=== PATIENT | female | born 1985 | race Caucasian/White ===

== ENCOUNTER 2021-02-07 19:00 | Outpatient (CLI) | payer OTHER ==
[~2021-02-07] VITALS: Ht 152.4 cm; Wt 74.5 kg
--- NOTE | 2021-02-07 19:15 | NUR ---
Ambulatory to unit for labor assessment, accompanied by spouse. Orineted to room, monitor, plan of care. Questions invited and answered. Pt reports irregular contractions " all doy. feels like theyre getting stronger" Denies loss of fluid or vaginal bleeding. SVE as noted.
[2021-02-07 19:25] VITALS: BP 120/73; PULSE 110
[2021-02-07 20:35] VITALS: PULSE 90; TEMP 98.1
--- NOTE | 2021-02-07 20:55 | NUR ---
Discharge instructions reviewed with pt and spouse. Questions invited and answered. Ambulatory off unit with spouse.
== END 2021-02-07 20:55 | disposition home or self-care (01) ==
LOC: LDRO 19:00
DX: O62.9 Abnormality of forces of labor, unspecified (principal); Z3A.39 39 weeks gestation of pregnancy

== ENCOUNTER → 2021-02-10 | Outpatient (CLI) | payer OTHER ==
[~2021-02-10] MED LIST: FERRO-TIME325 MG PO; IBU600 MG PO; PRENATAL TABLET PO; PROBIOTIC FORMU1 CAP PO
== END | disposition still patient (30) ==
LOC: ZCOL.LAB
DX: Z20.822 Contact with and (suspected) exposure to COVID-19 (principal)

== ENCOUNTER 2021-02-13 06:43 | Inpatient (IN) | payer OTHER ==
[~2021-02-13] VITALS: Ht 162.6 cm; Wt 75.0 kg
[2021-02-15] VITALS (52 sets, daily range): BP systolic 97–156; BP diastolic 55–93; PULSE 67–107; TEMP 98.5–98.9
--- NOTE | 2021-02-15 06:20 | NUR ---
0620- 41.0, G3L1 arrives on unit for scheduled IOL. Ambulatory to LDR3 with spouse. Oriented to room and plan of care. Reports normal movement and occasional contractions. Denies any LOF or VB. 0629- EFM explained and placed x2. Traing well. Assessment complete, VS obtained. Consent forms explained and signed. 0645- IV to right hand. Routine labs obtained via IV site. IVF infusing. 0655- SVE FT/50/-3. Pitocin explained and started at 2mu per protocol. Patient denies questions or needs at this time. Resting with call light within reach.
[2021-02-15] MEDS ORDERED: FERRO-TIME325 MG PO (06:51)
[2021-02-15] MEDS ORDERED: PRENATAL TABLET PO (06:51)
[2021-02-15] MEDS ORDERED: PROBIOTIC FORMU1 CAP PO (06:51)
[2021-02-15 07:01] LABS: BASO % 0.4 % (0.0-2.0); EOS # 0.1 (0.0-0.7); EOS % 0.6 % (0-4.0); GRAN # 6.8 (1.4-6.5); GRAN % 82.1 % (42.2-75.2); HEMOGLOBIN 10.3 g/dl (12.5-16.0); LYMPH % 12.2 % (20.0-51.0); MEAN CELL VOLUME 92 fl (80.0-100.0); MEAN CORPUSCULAR HEMOGLOBIN 30 pg (27.0-31.0); MEAN CORPUSCULAR HGB CONC 33 g/dl (33.0-37.0); MEAN PLATELET VOLUME 10.7 fl (7.4-10.4); MONO # 0.3 (0.1-0.6); MONO % 4.1 % (1.7-9.3); PLATELET COUNT 130 K/mm3 (130-400); REDCELL DISTRIBUTION WIDTH-CV 13.4 % (11.5-14.5)
[2021-02-15 07:02] LABS: HEMATOCRIT 31.4 % (37.0-47.0)
--- NOTE | 2021-02-15 08:00 | NUR ---
0805- Patient on birthing ball. FHR tracing well. No decels noted. Pitocin to 8mu. 0810- Intermittent late noted. Patient back to bed and wedge right. Will cont. to monitor.
--- NOTE | 2021-02-15 15:05 | NUR ---
Patient reports increased pain in back and left side. Breathing through and moaning with ctx. Patient pushes patient controlled epidural button x3 with no relief. Asa Caicedouse MEN'S DESIGNER to bedside to evaluate. See anesthesia record.
--- NOTE | 2021-02-15 15:25 | NUR ---
1525- Patient reports increased rectal pressure. SVE C/+1. Dr. Leyva update on patient. Catheter removed and instructed on pushing with contractions. 1530- Patient begins to push with contractions. Dr. Leyva on unit. Strong maternal effort noted, slow progress. 1550- Dr. Leyva to bedside. Patient continues to push with contractions with Dr. Leyva at bedside. 1614- Spontaneous vaginal delivery of viable male . Nares and mouth bulb suctioned by Dr. Leyva. To mother's chest where dried and stimulated by nursery RN. Pitocin paused. 1616- Cord clamped x2 and cut by father of . Care of assumed by Asa Stanton RN. 1617- Spontaneous and intact delivery of placenta. Pitocin 333ml/hr per orders. Superficial perineal laceration repaired by Dr. Leyva. Fundus firm, midline, and bleeding minimal. Yumi care provided and patient repositioned in bed. Ice pack to perineum. Plan of care and safety precautions reviewed. Patient denies questions or needs at this time. See doctor dictation, anesthesia record, and nurses notes.
[2021-02-16] VITALS: BP 116/67; PULSE 101; TEMP 99.1
[2021-02-16 04:02] VITALS: BP 118/72; PULSE 72; TEMP 98
--- NOTE | 2021-02-16 06:31 | NUR ---
REPORT RECEIVED FROM OFF GOING RN, GEMA Lam CARE TAKEN OVER BY THIS RN.
[2021-02-16 07:12] VITALS: BP 107/62; PULSE 70; TEMP 98.3
[2021-02-16] MEDS ORDERED: IBU600 MG PO (10:49)
[2021-02-16 12:17] VITALS: BP 112/54; PULSE 70; TEMP 97.8
[2021-02-16 16:30] VITALS: BP 120/68; PULSE 69; TEMP 97.7
== END 2021-02-16 17:50 | disposition home or self-care (01) | DRG 806 ==
LOC: LDR 06:43 → OB 02-15 06:10 → LDR 02-15 08:37 → OB 02-15 20:38
PROVIDERS: ADMIT Obstetrics & Gynecology
PROC: 10E0XZZ Delivery of Products of Conception, External Approach (ICD-10-PCS; principal; 2021-02-15)
PROC: 0HQ9XZZ Repair Perineum Skin, External Approach (ICD-10-PCS; 2021-02-15)
PROC: 10907ZC Drainage of Amniotic Fluid, Therapeutic from Products of Conception, Via Natural or Artificial Opening (ICD-10-PCS; 2021-02-15)
PROC: 3E033VJ Introduction of Other Hormone into Peripheral Vein, Percutaneous Approach (ICD-10-PCS; 2021-02-15)
DX: O48.0 Post-term pregnancy (principal); O99.12 Other diseases of the blood and blood-forming organs and certain disorders involving the immune mechanism complicating childbirth; Z37.0 Single live birth; D69.6 Thrombocytopenia, unspecified; O99.02 Anemia complicating childbirth; D64.9 Anemia, unspecified; O77.0 Labor and delivery complicated by meconium in amniotic fluid; O36.63X0 Maternal care for excessive fetal growth, third trimester, not applicable or unspecified; Z3A.41 41 weeks gestation of pregnancy
CPT/HCPCS: J2400; J2590; J7120